=== PATIENT | male | born 1950 | race Caucasian/White ===

== ENCOUNTER 2017-01-31 09:58 | Emergency (ER) | payer OTHER ==
--- NOTE | 2017-01-31 10:24 | EDPHY ---
H & P Stated Complaint: rlq pain for 1 month/seen 01/05 at [facility] Time Seen by Provider: 01/31/17 10:12 HPI/ROS: CHIEF COMPLAINT: Right lower quadrant abdominal pain x3 weeks HISTORY OF PRESENT ILLNESS: 66-year-old male history of chronic back pain, followed by pain management from states that 3 weeks ago he was sitting on a stool approximately 6-8 inches high when he slipped off and fell onto his right side and this has exacerbated his low back pain. He was seen at [facility] on 01/05/2017 (via [facility]) for evaluation of low back pain, given analgesia and discharged and followed up with his pain management physician Dr. Lau. no incontinence. No retention. No saddle anesthesia. No radiculopathy. No foot drop Patient was seen at his neurosurgical practice by SIMON Wylie this morning who sent patient to the emergency department for evaluation of right lower quadrant pain PRIMARY CARE PROVIDER: Judi. Dr Maynor Beck, neurosur. REVIEW OF SYSTEMS: A ten point review of systems was performed and is negative with the exception of the items mentioned in the HPI PAST MEDICAL & SURGICAL HISTORY: Chronic back pain, multiple low back surgeries SOCIAL HISTORY: nonsmoker no drug use PHYSICAL EXAM (Prior to examination, patient consented to physical exam, hands were washed and my usual and customary physical exam procedures followed) 1) GENERAL: Well-developed, well-nourished, alert and oriented. Appears uncomfortable. 2) HEAD: Normocephalic, atraumatic 3) HEENT: Pupils equal, round, reactive to light bilaterally. Sclera anicteric. 4) NECK: Full range of motion, no meningeal signs. 5) LUNGS: Clear auscultation bilaterally, no wheezes, no rhonchi, no retractions. 6) HEART: Regular rate and rhythm, no murmur, no heave, no gallop. 7) ABDOMEN: No guarding, positive McBurney's, negative Anand's, negative Rovsing's, negative peritoneal sign, 8) MUSCULOSKELETAL: Moving all extremities, no focal areas of tenderness, no obvious trauma. No peripheral edema or discoloration. 9) BACK: No CVA tenderness, no midline vertebral tenderness, no fluctuance, no step-off, no obvious trauma, no visual or palpable abnormality. 10) SKIN: No rash, no petechiae. 11) : Normal male external genitalia bilateral testicles with positive cremasteric reflex no swelling no tenderness no high-riding testicle. No signs of trauma. 12) neuro: patella Achilles reflexes intact to bilateral strength 5/5 no footdrop. DIFFERENTIAL DIAGNOSIS: My differential diagnosis includes, but is not limited to, acute appendicitis, acute cholecystitis, bowel obstruction, acute pancreatitis, testicular torsion, gastritis and urinary tract infection. The patient understands that this diagnosis is provisional and can never be 100% accurate. This is a partial list of diagnoses considered. These considerations are based on history, physical exam, past history and reassessment. - Personal History Current Tetanus/Diphtheria Vaccine: Yes - Medical/Surgical History Hx Asthma: No Hx Chronic Respiratory Disease: No Hx Diabetes: Yes Hx Cardiac Disease: No Hx Renal Disease: No Hx Cirrhosis: No Hx Alcoholism: No Hx HIV/AIDS: No Hx Splenectomy or Spleen Trauma: No Other PMH: arthritis/chronic pain/htn/diabetic/ - Social History Smoking Status: Former smoker Constitutional: Initial Vital Signs Temperature (C) 36.6 C 01/31/17 10:05 Heart Rate 82 01/31/17 10:05 Respiratory Rate 16 01/31/17 10:05 Blood Pressure 149/91 H 01/31/17 10:05 O2 Sat (%) 96 01/31/17 10:05 O2 Delivery Mode Room Air Allergies/Adverse Reactions: No Known Allergies Allergy (Verified 01/31/17 10:01) Home Medications: Medication Instructions Recorded DULoxetine 01/31/17 Hydrocodon-Acetaminophen 5-325 01/31/17 Lisinopril 01/31/17 Metformin HCl 01/31/17 morphINE 01/31/17 Medical Decision Making - Diagnostics Imaging Results: Imaging Impressions Abdomen CT 01/31/17 10:21 Impression: No source for right lower quadrant pain identified. 2. Suspicious for unsuccessful fusion of the L5-S1 level. 3. Nonobstructive left nephrolithiasis. A message was left for SIMON Hester. with the emergency room staff at 11:58 AM General information for patients regarding this examination can be found at [email or web address]. If you have questions or comments about this report, please contact me at (hospital) or [phone] (cell). Images reviewed by myself ED Course/Re-evaluation: 12:15 a.m.: Phone consultation with SIMON Wylie to inform him of the results of the a CT scan which is negative for appendicitis. SIMON Wylie will plan an outpatient MRI of his lumbar spine. This specific etiology of the patient's pain is not completely clear at this time. Doubt appendicitis. Doubt acute surgical abdominal pathology. Doubt cauda equina or spinal infectious etiology. I think the patient can be discharged. Recommend follow up with his pain management Physician and with neurosurgical services. He is agreeable with this plan. Given usual and customary discharge precautions and instructions. He feels comfortable being discharged. All questions and concerns addressed by myself. - Data Points Laboratory Results: Laboratory Results 01/31/17 10:30 01/31/17 10:30 01/31/17 01/31/17 01/31/17 12:30 10:32 10:30 WBC RBC Hgb POC Hgb 15.0 gm/dL gm/dL (14.5-17.3) Hct POC Hct 44 % % (42.8-50.6) MCV MCH MCHC RDW Plt Count MPV Neut % (Auto) Lymph % (Auto) Pratt % (Auto) Eos % (Auto) Baso % (Auto) Nucleat RBC Rel Count Absolute Neuts (auto) Absolute Lymphs (auto) Absolute Monos (auto) Absolute Eos (auto) Absolute Basos (auto) Absolute Nucleated RBC Immature Gran % Immature Gran # POC Sodium 143 mEq/L mEq/L (134-144) Sodium 142 mEq/L mEq/L (134-144) POC Potassium 3.8 mEq/L mEq/L (3.3-5.0) Potassium 4.1 mEq/L mEq/L (3.5-5.2) POC Chloride 105 mEq/L mEq/L (96-108) Chloride 107 mEq/L mEq/L (97-110) Carbon Dioxide 21 mEq/l L mEq/l (22-31) Anion Gap 14 mEq/L mEq/L (8-16) POC BUN 11 mg/dL mg/dL (7-23) BUN 12 mg/dL mg/dL (7-23) Creatinine 0.9 mg/dL mg/dL (0.7-1.3) POC Creatinine 0.9 mg/dL mg/dL (0.8-1.5) Estimated GFR > 60 Glucose 132 mg/dL H mg/dL (70-100) POC Glucose 136 mg/dL H mg/dL (70-100) Calcium 10.0 mg/dL mg/dL (8.5-10.4) Total Bilirubin 0.7 mg/dL mg/dL (0.1-1.4) Conjugated Bilirubin 0.4 mg/dL mg/dL (0.0-0.5) Unconjugated Bilirubin 0.3 mg/dL mg/dL (0.0-1.1) AST 17 IU/L IU/L (17-59) ALT 26 IU/L IU/L (21-72) Alkaline Phosphatase 68 IU/L IU/L (38-126) Total Protein 6.9 g/dL g/dL (6.3-8.2) Albumin 4.5 g/dL g/dL (3.5-5.0) Lipase 77.0 IU/L IU/L (23-300) Urine Color Pending Urine Appearance Pending Urine pH Pending Ur Specific Bucks Pending Urine Protein Pending Urine Ketones Pending Urine Blood Pending Urine Nitrate Pending Urine Bilirubin Pending Urine Urobilinogen Pending Ur Leukocyte Esterase Pending Urine RBC Pending Urine WBC Pending Ur Epithelial Cells Pending Urine Glucose Pending 01/31/17 10:30 WBC 8.55 10^3/uL 10^3/uL (3.80-9.50) RBC 4.87 10^6/uL 10^6/uL (4.40-6.38) Hgb 15.0 g/dL g/dL (13.7-17.5) POC Hgb Hct 42.9 % % (40.0-51.0) POC Hct MCV 88.1 fL fL (81.5-99.8) MCH 30.8 pg pg (27.9-34.1) MCHC 35.0 g/dL g/dL (32.4-36.7) RDW 11.9 % % (11.5-15.2) Plt Count 383 10^3/uL 10^3/uL (150-400) MPV 9.2 fL fL (8.7-11.7) Neut % (Auto) 76.7 % H % (39.3-74.2) Lymph % (Auto) 14.2 % L % (15.0-45.0) Pratt % (Auto) 6.3 % % (4.5-13.0) Eos % (Auto) 1.6 % % (0.6-7.6) Baso % (Auto) 0.7 % % (0.3-1.7) Nucleat RBC Rel Count 0.0 % % (0.0-0.2) Absolute Neuts (auto) 6.56 10^3/uL H 10^3/uL (1.70-6.50) Absolute Lymphs (auto) 1.21 10^3/uL 10^3/uL (1.00-3.00) Absolute Monos (auto) 0.54 10^3/uL 10^3/uL (0.30-0.80) Absolute Eos (auto) 0.14 10^3/uL 10^3/uL (0.03-0.40) Absolute Basos (auto) 0.06 10^3/uL 10^3/uL (0.02-0.10) Absolute Nucleated RBC 0.00 10^3/uL 10^3/uL (0-0.01) Immature Gran % 0.5 % % (0.0-1.1) Immature Gran # 0.04 10^3/uL 10^3/uL (0.00-0.10) POC Sodium Sodium POC Potassium Potassium POC Chloride Chloride Carbon Dioxide Anion Gap POC BUN BUN Creatinine POC Creatinine Estimated GFR Glucose POC Glucose Calcium Total Bilirubin Conjugated Bilirubin Unconjugated Bilirubin AST ALT Alkaline Phosphatase Total Protein Albumin Lipase Urine Color Urine Appearance Urine pH Ur Specific Bucks Urine Protein Urine Ketones Urine Blood Urine Nitrate Urine Bilirubin Urine Urobilinogen Ur Leukocyte Esterase Urine RBC Urine WBC Ur Epithelial Cells Urine Glucose Point of Care Test Results: 01/31/17 10:32 POC Sodium 143 POC Potassium 3.8 POC Chloride 105 POC BUN 11 POC Creatinine 0.9 POC Glucose 136 H Departure - Departure Disposition: Home, Routine, Self-Care Clinical Impression: Abdominal pain Qualifiers: Abdominal location: right lower quadrant Qualified Code(s): R10.31 - Right lower quadrant pain Condition: Good Instructions: Acute Abdominal Pain (ED) Additional Instructions: Seek immediate medical attention if you develop new or worsening symptoms, if you develop fevers, chills, inability to tolerate oral intake, incontinence, retention, numbness around your perineum or any other symptoms that concerns you. Referrals: Macho Meraz MD [Primary Care Provider] - 1 day without fail Olvin Beck MD [Medical Doctor] - 2-3 days without fail Carisa Lau MD [Medical Doctor] - 1 day without fail
[2017-01-31 10:39] LABS: % IMMATURE GRANULYOCYTES 0.5 % (0.0-1.1); ABSOLUTE IMMATURE GRANULOCYTES 0.04 10^3/uL (0.00-0.10); ADD DIFF? NO; ADD MORPH? NO; ADD SCAN? NO; ATYPICAL LYMPHOCYTE FLAG 0 (0-99); FRAGMENT RBC FLAG 0 (0-99); HEMATOCRIT 42.9 % (40.0-51.0); LEFT SHIFT FLG 0 (0-99); LIPEMIA HEMOLYSIS FLAG 90 (0-99); MEAN CELL HEMOGLOBIN 30.8 pg (27.9-34.1); MEAN CELL VOLUME 88.1 fL (81.5-99.8); MEAN PLATELET VOLUME 9.2 fL (8.7-11.7); PLATELET CLUMPS FLAG 10 (0-99); PLATELET COUNT 383 10^3/uL (150-400); RED BLOOD CELL COUNT 4.87 10^6/uL (4.40-6.38); RED CELL DISTRIBUTION WIDTH 11.9 % (11.5-15.2)
[2017-01-31 10:55] LABS: ALANINE AMINOTRANSFERASE 26 IU/L (21-72); ALBUMIN 4.5 g/dL (3.5-5.0); ALKALINE PHOSPHATASE 68 IU/L (38-126); ANION GAP 14 mEq/L (8-16); ASPARTATE AMINOTRANSFERASE 17 IU/L (17-59); BILIRUBIN,TOTAL 0.7 mg/dL (0.1-1.4); BILIRUBIN-CONJUGATED 0.4 mg/dL (0.0-0.5); BILIRUBIN-UNCONJUGATED 0.3 mg/dL (0.0-1.1); CARBON DIOXIDE 21 mEq/l (22-31); CHLORIDE 107 mEq/L (97-110); CREATININE 0.9 mg/dL (0.7-1.3); GLOMERULAR FILTRATION RATE > 60; GLUCOSE 132 mg/dL (70-100); POTASSIUM 4.1 mEq/L (3.5-5.2); SODIUM 142 mEq/L (134-144); TOTAL PROTEIN 6.9 g/dL (6.3-8.2)
[2017-01-31] MEDS ORDERED: IOPAMIDOL (ISOVUE-300) 100 ML BTL IV ONE (10:55)
[2017-01-31 12:56] VITALS: RESP 18; O2SAT 93
[2017-01-31 13:08] LABS: COLOR PALE YELLOW; LEUKOCYTE ESTERASE,URINE NEGATIVE (NEGATIVE); NITRITE,URINE NEGATIVE (NEGATIVE)
[2017-01-31 13:26] LABS: BACTERIA NONE SEEN /hpf (NONE SEEN); MUCUS NONE SEEN /lpf (NONE-1+); WBC,URINE NONE SEEN /hpf (0-3)
[2017-01-31 13:41] VITALS: BP 148/77; PULSE 85; TEMP 98.6
== END 2017-01-31 13:41 | disposition home or self-care (01) ==
DX: R10.31 Right lower quadrant pain (principal); I10 Essential (primary) hypertension; E11.9 Type 2 diabetes mellitus without complications; Z87.891 Personal history of nicotine dependence; Z79.84 Long term (current) use of oral hypoglycemic drugs
CPT/HCPCS: 74177; 99285; Q9967; 82947-QW

== ENCOUNTER → 2018-03-19 | Outpatient (CLI) | payer OTHER | LOC: CIMAGING 10:34 | PROVIDERS: ATTEND Family Medicine | DX: M51.36 Other intervertebral disc degeneration, lumbar region (principal); M48.56XA Collapsed vertebra, not elsewhere classified, lumbar region, initial encounter for fracture; M48.54XA Collapsed vertebra, not elsewhere classified, thoracic region, initial encounter for fracture; E11.9 Type 2 diabetes mellitus without complications; M25.551 Pain in right hip; Z96.641 Presence of right artificial hip joint; Z98.1 Arthrodesis status | CPT/HCPCS: 72100-PO; 73502-PO ==

== ENCOUNTER → 2018-05-03 | Outpatient (CLI) | payer OTHER | LOC: FIMAGING 19:15 | PROVIDERS: ATTEND Nurse Practitioner | DX: Z98.1 Arthrodesis status (principal) ==

== ENCOUNTER → 2018-05-06 | Outpatient (CLI) | payer OTHER | LOC: FIMAGING 11:49 | PROVIDERS: ATTEND Nurse Practitioner | DX: Z98.1 Arthrodesis status (principal); T84.216A Breakdown (mechanical) of internal fixation device of vertebrae, initial encounter; M51.36 Other intervertebral disc degeneration, lumbar region ==